=== PATIENT | female | born 1985 | race Caucasian/White ===

== ENCOUNTER 2020-09-09 21:49 | Emergency (ER) | payer OTHER, SELFPAY ==
[2020-09-09 21:51] VITALS: BP 133/73; PULSE 77; RESP 14; TEMP 36.3; O2SAT 96; BMI 25.0
--- NOTE | 2020-09-10 00:10 | ED_ITS ---
HPI - Skin/Abscess/Foreign Bdy General Chief complaint: Skin/Abscess/Foreign Body Stated complaint: EYE BUMP Source: patient Mode of arrival: ambulatory Limitations: no limitations History of Present Illness HPI narrative: 35-year-old female with past medical history of opioid dependence currently on methadone presents with left eyebrow swelling and pain. Patient stated that she noted a small bump on over her left eyebrow 3 days ago and has progressively gotten worse. She has been clean for several years currently taking methadone, does not report any injury or foreign body to the area. She does not report any fevers or chills, and but states that the pain is 10/10 and she can barely touch the side of her face. MD complaint: abscess/boil Onset (ago): day(s) (3) Tetanus up to date: no Location: face Severity: severe Severity scale (1-10): 9 Quality: aching and constant Pain Consistency: constant Relieving factors: none Exacerbating factors: palpation and movement Context: none Associated symptoms: denies other symptoms Treatments prior to arrival: attempted to drain pus at home Related Data Previous Rx's Medication Instructions Recorded cephalexin [Keflex] 500 mg PO Q8H 10 Days #30 cap 09/10/20 doxycycline monohydrate 100 mg PO BID 10 Days #20 cap 09/10/20 Allergies Allergy/AdvReac Type Severity Reaction Status Date / Time amoxicillin [From AUGMENTIN] Allergy Severe RASH Verified 09/09/20 21:53 clavulanic acid Allergy Severe RASH Verified 09/09/20 21:53 [From AUGMENTIN] codeine [CODEINE] Allergy Intermediate RASH Verified 09/09/20 21:53 latex [LATEX] Allergy Unknown SWELLING Verified 09/09/20 21:53 Review of Systems Review of Systems: Constitutional: No Fever, No Chills ENT/Mouth: No Ear Pain, No Hoarseness, No sore throat Eyes: No Eye Pain, positive left eyebrow Swelling, positive Redness to the periorbital area, No Foreign Body Cardiovascular: No Chest Pain, No SOB Respiratory: No Cough, No Dyspnea Gastrointestinal: No Nausea, No Vomiting, No Diarrhea, No abdominal Pain Genitourinary: No Dysuria, No Hematuria Musculoskeletal: positive joint pain, No Myalgias, No Joint Swelling Skin: Positive swelling and erythema to the left eyebrow, No Skin lacerations, No rash Neuro: No Weakness, No Numbness, No Paresthesias, No Loss of Consciousness, No Dizziness, No Headache Psych: No Anxiety/Panic, No Depression Heme/Lymph: no easy bruising, no Lymphadenopathy Endocrine: No Polyuria, No Polydipsia Yes all other systems are reviewed and are negative [facility] Past Medical History Attestation statement: The following information was validated with the patient. Medical History (Updated 09/10/20 @ 00:53 by Christelle Pepe NP) Patient denies significant medical history Social History Social History Advance Directives: No Advance Directives Information Provided: No Physical Exam Vital Signs: Vital Signs: Last Vital Signs Temp 97.4 F 09/09/20 21:51 Pulse 77 09/09/20 21:51 Resp 14 09/09/20 21:51 BP 133/73 09/09/20 21:51 Pulse Ox 96 09/09/20 21:51 Body Mass Index 25.0 Appearance: Alert. Oriented X3. Moderate distress. Eyes: Pupils equal, round and reactive to light. No pain to extraocular movements, EOMI. Swelling and erythema noted to the left eyebrow and periorbital area. ENT: Pharynx normal. No pain on jaw movement, no tenderness to sinuses, no mastoid tenderness Neck: Normal inspection. Neck supple. CVS: Normal heart rate and rhythm. Pulses normal. Respiratory: No respiratory distress. Breath sounds normal. Abdomen: Soft and nontender. Skin: Abscess and cellulitis noted to the left eyebrow, otherwise all other Skin warm and dry. Normal skin turgor. Extremities: No lower extremity edema. Neuro: No motor deficit. No sensory deficit. Course Course Course Narrative: 35-year-old female presents with abscess to the left eyebrow. Prepped and draped in sterile fashion, plan to I and D the abscess, 3 mL of lidocaine 2% with epi applied, minimal blood loss approximately 5 mL of purulent drainage expressed from the site. P.o. antibiotics doxycycline and Keflex given. One tablet of 5 mg oxycodone given. Detailed description regarding increase infection, signs and symptoms and indicating sepsis, patient verbalized understanding of and agrees to plan of care. She will return if symptoms persist. Patient verbalized understanding of and agrees to plan of care discharge home. [facility] - Skin/Abscess/Foreign Bdy Differential Diagnosis Differential diagnosis: Likely abscess of skin or subcutaneous tissue and cellulitis Medical Records Attestation: I reviewed the patient's medical records. Discharge Plan Discharge Clinical Impression: Abscess of skin or subcutaneous tissue Qualifiers: Site of cutaneous abscess: face Qualified Code(s): L02.01 - Cutaneous abscess of face Cellulitis Qualifiers: Site of cellulitis: face Qualified Code(s): L03.211 - Cellulitis of face Patient Disposition: Home, Self-Care Instructions: Cellulitis (ED), Abscess (ED), Periorbital Cellulitis in Adults (ED), Abscess Follow-up (ED) Additional Instructions: You were evaluated for cellulitis and abscess to the left eyebrow. Please take doxycycline and Keflex as directed. Use a warm compress to help decrease the inflammation and swelling. Your wound will drain, please keep the area clean and dry. While you were here in the emergency department, we drained the abscess over your left eyebrow. We did give you 5 mg of oxycodone for pain management. Please keep this wound covered until it heals. This wound may drain, please monitor for increased infection. If symptoms get worse, or you develop fevers, chills, or any other concerning symptoms please return to the emergency department immediately. Thank you for choosing this emergency department for evaluation. Please follow-up with primary care physician as needed. Return to the emergency department for any new, concerning, or worsening symptoms. Prescriptions: New cephalexin [Keflex] 500 mg capsule 500 mg PO Q8H 10 Days Qty: 30 RF: 0 doxycycline monohydrate 100 mg capsule 100 mg PO BID 10 Days Qty: 20 RF: 0 Interventions: ED Discharge Assessment Last Done: 09/10/20 01:00 Discharge Date/Time: 09/10/20 01:02
[2020-09-10] MEDS: Lidocaine HCl 2 % MPF 5 ML VIAL SUBCUT (00:54)
[2020-09-10] MEDS: oxyCODONE HCl Immed Release 5 MG TABLET PO (00:54)
[2020-09-10] MEDS: cephALEXin 500 MG CAPSULE PO (00:54)
== END 2020-09-10 01:02 | disposition home or self-care (01) ==
PROVIDERS: Emergency Provider Internal Medicine
DX: L02.01 Cutaneous abscess of face (principal); L03.211 Cellulitis of face; F11.20 Opioid dependence, uncomplicated
CPT/HCPCS: 10060; 87071; 87147; 87186; 87205; 99284